=== PATIENT | male | born 1935 | race Caucasian/White ===

== ENCOUNTER 2020-05-17 12:00 | Inpatient (IN) | payer MEDICARE, SELFPAY ==
[2020-05-17] VITALS (8 sets, daily range): BP systolic 109–150; BP diastolic 54–81; PULSE 90–145; RESP 16–20; TEMP 37–38.7; O2SAT 94–98; BMI 26.8
--- NOTE | ~2020-05-17 | NM_ITS ---
EXAMINATION: NM hepatobiliary wo pharm DATE: 05/18/2020 15:45 INDICATION: Abdominal pain COMPARISON: Ultrasound dated 05/17/2020 TECHNIQUE: 4.2 mCi Tc-99m mebrofenin (Choletec) was administered intravenously. Scintigraphic images of the abdomen were obtained for one hour. Additional 4 hour delayed scintigrams were obtained. FINDINGS: There is delayed clearance of radiotracer from the blood pool activity in the heart gradually decreas ing but still discernible on the 60 minute images. There is homogeneous tracer uptake by the liver wh ich persists the relatively homogeneous parenchymal distribution through 4 hours of imaging consisten t with delayed excretion. No evident accumulation of activity in the common bile duct or gallbladder with no evident biliary ductal dilation evident on the ultrasound from one day prior. Consolation of findings would be most consistent with global hepatocellular dysfunction. Subtle crescentic accumulat ion of uptake along the periphery of the left lower quadrant suggesting possible ascites. IMPRESSION: 1. Consultation of findings including delayed hepatic uptake with no discernible hepatic excretion w ith no biliary ductal dilation on recent ultrasound most consistent with severe hepatocellular dysfun ction. Reviewed, dictated and finalized at location A. IMPRESSION: 1. Consultation of findings including delayed hepatic uptake with no discernib le hepatic excretion with no biliary ductal dilation on recent ultrasound most consistent with severe hepatocellular dysfunction.
--- NOTE | ~2020-05-17 | XR_ITS ---
EXAMINATION: XR chest 2V EXAM DATE: 05/18/2020 20:54 INDICATION: Fever. TECHNIQUE: Frontal and lateral projections of the chest obtained and reviewed. There is no prior otilio dy for comparison. FINDINGS: Abnormal bibasilar reticulation, could be chronic interstitial lung disease. Difficult to exclude superimposed reticulonodular infectious process. No prior studies are available for compariso n. No confluent airspace disease. Possible small hiatal hernia. Cardiomediastinal silhouette is normal. There is no pneumothorax suspec sravanthi. There are no pleural effusions. 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 There are mild bony degenerati ve changes. IMPRESSION: Abnormal by basilar reticulation appearance most consistent with chronic interstitial sonia g disease but can't exclude acute infectious process. Reviewed, dictated and finalized at location A. IMPRESSION: Abnormal by basilar reticulation appearance most consistent with ch ronic interstitial lung disease but can't exclude acute infectious process.
--- NOTE | ~2020-05-17 | US_ITS ---
EXAMINATION: US right upper quadrant DATE: 05/17/2020 13:59 INDICATION: Abdominal pain and fever TECHNIQUE: Multiple grayscale and Doppler ultrasound images of the abdomen were obtained. COMPARISON: None available FINDINGS: Bowel gas obscures visualization of the pancreas. The visualized portions of the pancreas a re unremarkable. The liver is normal with normal echogenicity and echotexture. No surface nodularity. Normal hepatopetal flow in the main portal vein. There is mobile sludge within the gallbladder. No p ericholecystic fluid or gallbladder wall thickening are present. The normal common bile duct measures 7 mm. There was no sonographic Bergman sign, sensitivity can be decreased by pain medication. IMPRESSION: 1. Gallbladder sludge without additional findings of cholecystitis. Reviewed, dictated and finalized at location A.
--- NOTE | 2020-05-17 12:33 | ED.FEVER ---
HPI - Fever General Chief Complaint: Fever Stated Complaint: fever Time Seen by Provider: 05/17/20 12:28 History of Present Illness HPI Narrative: Patient is an 84-year-old male who presents ER with abdominal pain and fever. Reports she was lying in bed last night and had sudden onset diffuse abdominal pain. Cannot localize to upper or lower. Kept him up all night but is since gone away. He then noted today that his temperature was elevated and he opted to come in to be evaluated. She has no nausea/vomiting/diarrhea. No urinary frequency or urgency. The pain had no radiation. Denies chest pain/shortness of breath/rhinorrhea/sinus congestion/productive cough. No known sick exposures. Related Data Home Medications Medication Instructions Recorded Confirmed aspirin [Adult Low Dose Aspirin] 81 mg PO DAILY 05/17/20 05/17/20 losartan 100 mg PO DAILY 05/17/20 05/17/20 omeprazole 20 mg PO DAILY 05/17/20 05/17/20 Allergies Allergy/AdvReac Type Severity Reaction Status Date / Time No Known Allergies Allergy Mild Verified 05/17/20 12:09 Review of Systems Review of Systems: All systems reviewed & are unremarkable except as noted in HPI and below Constitutional: Constitutional: Denies chills, Denies fatigue and Reports fever(s) ENT: Denies nasal congestion and Denies sore throat Cardiovascular: Cardiovascular: Denies chest pain and Denies radiating jaw, neck or arm pain Respiratory: Respiratory: Denies cough, Denies dyspnea and Denies wheezing Gastrointestinal: Gastrointestinal: Reports abdominal pain, Denies diarrhea, Denies nausea and Denies vomiting Genitourinary: Genitourinary: Denies hematuria, Denies dysuria and Denies urinary frequency [facility] Past Medical History Medical History GERD (gastroesophageal reflux disease) Hypertension Surgical History Surgical History H/O excision of ganglion cyst History of excision of pilonidal cyst Family History Family History Other No significant family history Social History Social History Social History: The patient lives at home with his , Riddhi, who he designates as his medical decision maker. Smoking status: Former smoker Alcohol intake: current Alcohol use details: Occasional alcohol use a few times per week. Substance use: never Living arrangements: with family Occupation/Education: retired Gender identity (if verbalized by the patient): Male Spiritual care concerns: No Exam Narrative: Exam Narrative: GENERAL: Well-appearing, well-nourished, and in no acute distress. HEAD: Normocephalic, atraumatic. ENT: External ear and TMs normal bilaterally. CHEST: Clear to auscultation. No respiratory distress. HEART: Tachycardic and regular. Normal peripheral pulses. ABDOMEN: Soft, nontender, nondistended. EXTREMITIES: Normal range of motion. No edema. SKIN: Warm, dry, no rash. NEURO: Alert and oriented x3. PSYCH: Normal mood and affect. Course [employer]/PA Physician Supervision Given gallbladder sludge, febrile illness, patient's age, and significant pain last 12 hours it is felt best to admit patient for observation. Discussed with general surgery. Will obtain HIDA scan and check a hepatitis panel. General surgery would like patient to be admitted to medicine and for GI be consulted as well. Patient be started on Zosyn. Since patient is getting HIDA scan tomorrow he will be able to eat a low-fat diet and should be n.p.o. at midnight. Vital Signs Vital signs: Vital Signs Temperature 100.4 F H 05/17/20 12:01 Pulse Rate 112 H 05/17/20 12:01 Respiratory Rate 17 05/17/20 12:01 Blood Pressure 136/54 L 05/17/20 12:01 Pulse Oximetry 96 05/17/20 12:01 Temperature 98.9 F 05/17/20 17:09 Pulse Rate 91 0
[2020-05-17 12:53] LABS: Basophils Percent Auto 0.2 % (0.2-1.2); Hematocrit 40.2 % (42.0-52.0); Immature Granulocyte Absolute 0.03 K/mm3 (0.00-0.031); Immature Granulocyte Percent A 0.3 % (0-0.5); Lymphocytes Absolute Auto 0.28 K/mm3 (0.9-3.2); Lymphocytes Percent Auto 2.9 % (18.3-44.2); Mean Corpuscular HGB Conc 34.8 g/dl (32-36); Mean Corpuscular Hemoglobin 33.3 pg (26-34); Mean Corpuscular Volume 95.5 fl (80-100); Monocytes Absolute Auto 0.5 K/mm3 (0.1-0.6); Monocytes Percent Auto 5.1 % (2.6-8.5); Neutrophils Absolute Auto 8.8 K/mm3 (1.3-6.7); Neutrophils Percent Auto 91.5 % (45.5-73.1); Platelet Count Result 184 k/mm3 (150-375); Red Blood Count 4.21 M/mm3 (4.6-6.20); White Blood Count 9.7 K/mm3 (4.5-10.0)
[2020-05-17 13:06] LABS: Alanine Aminotransferase 380 U/L (4-50); Albumin Level 4.5 g/dL (3.5-5.1); Alkaline Phosphatase 111 U/L (38-126); Anion Gap 14.2 mmol/L (7-16); Aspartate Amino Transferase 564 U/L (17-59); Bilirubin,Total 3.3 mg/dL (0.2-1.3); Blood Urea Nitrogen 14 mg/dL (9-20); Calcium 8.9 mg/dL (8.4-10.2); Carbon Dioxide 28 mmol/L (22-30); Chloride 95 mmol/L (98-107); Estimated CRCL calculation 53 ml/min; Estimated Glomerular Filt Rate > 60; Glucose 155 mg/dL (75-110); Lipase 56 U/L (23-300); Potassium 4.2 mmol/L (3.4-5.0); Sodium 133 mmol/L (137-145)
[2020-05-17] MEDS: SODIUM CHLORIDE 0.9% IV 1,000 ML 999 ML IV CONT (13:17)
[2020-05-17 13:37] LABS: Add Urine Microscopic? YES; Appearance Urine Clear (Clear); Bacteria Urine Trace /hpf; Bilirubin Urine Negative (Negative); Blood Urine Negative (Negative); Color Urine Yellow (Yellow); Glucose Urine UA Negative (Negative); Ketones Urine Negative (Negative); Leukocyte Esterase Ur Negative LEU/UL (Negative); Mucus Urine Rare /lpf; Nitrate Urine Negative (Negative); Protein Urine 2+ mg/dL (Negative); RBC Urine 0-2 /hpf (0-2); Specific Grav Ur 1.014 (1.001-1.035); Squamous Epithelial Cell Urine Rare /hpf (Few)
--- NOTE | 2020-05-17 15:33 | PM.CNGS ---
Assessment and Plan Assessment and plan (1) Abdominal pain: Qualifiers: Abdominal location: periumbilical Qualified Code(s): R10.33 - Periumbilical pain Code(s): R10.9 - Unspecified abdominal pain Status: Acute Assessment and Plan: The patient's periumbilical pain has completely resolved and he is non-tender on exam. Ultrasound showed sludge but no other findings suggesting cholecystitis. He does have markedly elevated LFTs and a fever. I discussed the patient's case and plan of care with Dr. Nieto. The patient's clinical presentation, history, and exam do not correlate with gallbladder disease. We would recommend getting a HIDA scan to further evaluate the gallbladder and also ordering a hepatitis panel. No plans for surgical intervention at this time. Okay from our standpoint for the patient to eat a low fat diet. Thank you for allowing us to see the patient in consultation and we will continue to follow along with you. (2) Elevated LFTs: Code(s): R79.89 - Other specified abnormal findings of blood chemistry Status: Acute (3) Hypertension: Qualifiers: Hypertension type: unspecified Qualified Code(s): I10 - Essential (primary) hypertension Code(s): I10 - Essential (primary) hypertension Status: Acute History of Present Illness Consult details Consult date: 05/17/20 Reason for consult: other (Elevated LFTs and gallbladder sludge) Requesting physician: Flash Brown MD Narrative: Homar is an 84-year-old male with a history of hypertension and GERD. He presented to the emergency department this morning for evaluation of fever, generalized weakness, diaphoresis, and abdominal pain. The patient reports eating eggs and sausage for dinner last night and then developing periumbilical abdominal pain a few hours after. He took Gas-X, which helped alleviate his abdominal pain. He developed generalized weakness and diaphoresis while sitting in his chair, but decided to lay down in bed to sleep. Through the night, he woke up with rigors and still had excessive sweating. His took his temperature, which reportedly was 102.1 F. The patient states at that time, his abdominal pain had completely resolved. This morning, he continued to feel weak and chilled, so they decided to take him to the emergency department for further evaluation. His states it took two people to get him to the car. Labs in the ER revealed a white blood cell count of 9,700, total bilirubin 3.3, AST 564, ALT 380, alk phos 111, and lipase 56. Urinalysis showed 2+ protein and urine urobilinogen of 4.0. Right upper quadrant abdominal ultrasound was performed and showed gallbladder sludge with no pericholecystic fluid, gallbladder wall thickening, or distention. In the ER, he was found to be tachycardic with a heart rate of 112 and a temperature of 100.4 F. Our service was contacted for surgical evaluation due to the findings of gallbladder sludge and elevated LFTs with a fever. The patient is now being seen in the ER. He reports he has not had any abdominal pain since late last night and is having no pain now. He denies any nausea, vomiting, change in bowel habits, or bloating. He denies having this pain in the past. No fevers prior to last night. Voiding normally without complaints. No other complaints at this time. Review of Systems Constitutional: Constitutional: Reports as per HPI, Reports chills, Reports excessive sweating, Denies fatigue, Reports fever(s), Denies headache(s) and Reports weakness (generalized weakness) Eyes: Eyes: Denies change in vision and Denies loss of vision ENT: Reports Normal hearing present, Denies dizziness and Denies headache(s) Cardiovascular: Cardiovascular: Denies chest pain, Denies syncope, Denies leg edema, Denies lightheadedness, Denies radiating jaw, neck or arm pain and Denies dyspnea Respiratory: Respiratory: Denies cough, Denies dyspnea and Denies wheezing Gastrointestina
[2020-05-17 16:46] LABS: Hepatitis B Surface Antigen Negative (Negative)
[2020-05-17 16:52] LABS: HAV RESULT Negative (Negative); Hepatitis B Core IgM Result Negative (Negative)
[2020-05-17 17:04] LABS: Hepatitis C Virus Antibody Negative (Negative)
--- NOTE | 2020-05-17 17:39 | ADMGEN ---
This patient, Homar Loyola, was admitted to 3 Med Surg Room 315-01. Patient/family oriented to hospital policies and general routines including ID bracelet, bed and alarms, visiting hours, pain management, procedures, bathroom and other care routines, personal items, smoking policy, room service/diet, and visiting hours. Valuables list has been completed. Information on how to activate the Rapid Response Team has been discussed. Patient/Family are encouraged to report perceived risks to care and to ask questions if they do not understand what they are told or what they should do.
--- NOTE | 2020-05-17 17:57 | PM.PNGS ---
Progress Note: A&P Assessment and Plan (1) Abdominal pain: Qualifiers: Abdominal location: periumbilical Qualified Code(s): R10.33 - Periumbilical pain Code(s): R10.9 - Unspecified abdominal pain Status: Acute Assessment and Plan: pain has resolved since early this morning. It has not recurred. His ultrasound was somewhat equivocal. Will get a HIDA scan as well as hepatitis profile. There were no signs of cholecystitis on the ultrasound. Etiology is unclear. Cholecystitis is a possibility but seems somewhat unlikely. Will follow along with you. No plans for surgery at this time. (2) Elevated LFTs: Code(s): R79.89 - Other specified abnormal findings of blood chemistry Status: Acute Assessment and Plan: Recheck tomorrow morning. HIDA scan tomorrow as well. Subjective Subjective Date/Time Seen: 05/17/20 17:57 Patient had a fatty meal for supper last night and afterwards experienced severe upper abdominal pain associated with nausea. This lasted several hours, into the early childhood. It went away after some Gas-X. He went back to bed and when he awakened this morning he felt chilled and was noted to have a fever over 102. He continued to feel bad but no longer had any abdominal pain and has not had any since the episode last night. He was seen in the emergency room and had a normal white count but at the upper limits of normal. His liver enzymes were elevated with a bilirubin of 3.3 but normal alkaline phosphatase. His ultrasound showed gallbladder sludge and a 7 mm common bile duct. He feels fine now with no complaints or problems. He did still have a low-grade fever in the emergency room. He was seen in consultation for potential gallbladder disease as the source of his symptoms. Review of Systems Review of Systems: All systems reviewed & are unremarkable except as noted in HPI and below ( HPI) Exam GI: Inspection: normal to inspection, non-distended and no visible herniation GI Palp: Yes Soft to palpation, No Tenderness to palpation present (GI), No Guarding due to palpation present (GI), No Hepatomegaly present, No Splenomegaly present, No Hernia present and No Palpable mass present Auscultation: normal bowel sounds Objective Data Vital Signs Vital Signs: Vital Signs - 24 hr 05/17/20 12:01 05/17/20 13:18 05/17/20 17:09 Temperature 38.0 C H 37.2 C Pulse Rate 112 H 105 H 91 Respiratory Rate 17 19 16 Blood Pressure 136/54 L 132/60 109/72 Pulse Oximetry 96 96 95 Intake/Output Intake/Output: Intake & Output 05/14/20 05/15/20 05/16/20 05/17/20 23:59 23:59 23:59 23:59 Intake Total 1150 Balance 1150 Meds/Results Medications: Active Medications Generic Name Dose Route Start Last Admin Trade Name Freq PRN Reason Stop Dose Admin Acetaminophen 1,000 mg in 100 mls @ 400 mls/hr 05/17/20 15:38 Ofirmev 1,000 Mg Ivpb IVPB 05/18/20 15:39 Q6H PRN Mild Pain (1-3) or Fever Sodium Chloride 1,000 mls @ 80 mls/hr 05/17/20 15:40 Normal Saline Iv IV CONT .[id number] SEEMA Piperacillin/Tazobactam/Dextrose 3.375 gm in 50 mls @ 100 mls/hr 05/17/20 23:00 Zosyn 3.375 Gm/D5w 50ml Pm IVPB Q6HR SEEMA Morphine Sulfate 4 mg 05/17/20 15:38 Morphine Sulfate Inj IV PUSH Q2H PRN Pain Rated 7-10 Ondansetron HCl 4 mg 05/17/20 15:38 Zofran Inj IV PUSH Q4H PRN Nausea Radiology Results: ITS Impressions Upper Quadrant Ultrasound 05/17/20 14:00 IMPRESSION: 1. Gallbladder sludge without additional findings of cholecystitis. Labs Labs: Laboratory Results - last 24 hr 05/17/20 05/17/20 05/17/20 12:48 12:48 13:21 WBC 9.7 RBC 4.21 L Hgb 14.0 Hct 40.2 L MCV 95.5 MCH 33.3 MCHC 34.8 RDW 13.0 Plt Count 184 MPV 10.0 Immature Gran % (Auto) 0.3 Neut % (Auto) 91.5 H Lymph % (Auto) 2.9 L Cooke % (Auto) 5.1 Eos % (Auto) 0.0 Baso % (Auto)
[2020-05-17] MEDS: SODIUM CHLORIDE 0.9% IV 1,000 ML 80 ML IV CONT (18:00)
[2020-05-18] VITALS (16 sets, daily range): BP systolic 92–112; BP diastolic 54–73; PULSE 86–144; RESP 16–20; TEMP 36.7–37.6; O2SAT 95–97
--- NOTE | 2020-05-18 | ECHO_ITS ---
Patient Info Name: Homar Loyola Age: 84 years : 1935 Gender: Male Ht: 68 in Wt: 176 lbs BSA: 1.97 m2 HR: 95 bpm BP: 109 / 72 mmHg Heart Rhythm: Atrial Fibrillation Technical Quality: Good Exam Date: 05/18/2020 10:03 AM Exam Location: [facility] Patient Status: Inpatient Admit Date: 05/17/2020 Staff Ordering Physician: Meron Moore DO [employer] Machine Tender: Peter Bergman RDCS, RT Attending Provider: Mic Velasco MD Referring Physician: Oscar SHI; Exam Type: CA echo doppler color flow Study Info Indications I48.1 - Persistent atrial fibrillation Complete two-dimensional, color flow and Doppler transthoracic echocardiogram is performed. Strain analysis performed. History/Risk Factors Atrial fibrillation. Summary 1. Left ventricular chamber dimension is normal. 2. Left ventricular systolic function is normal, estimated at 60-65%. 3. There is mild to moderate mitral valve regurgitation. 4. There is mild aortic valve stenosis with a peak velocity of 198 cm/s, mean gradient of 8 mmHg, and aortic valve area of 1.2 cm2. 5. Severe biatrial dilation. Left Ventricle Left ventricular chamber dimension is normal. Left ventricular systolic function is normal, estimated at 60-65%. The left ventricular diastolic function is indeterminate. Right Ventricle Right ventricular chamber dimension is normal. Left Atria Left atrial chamber dimension is severely enlarged. Right Atria Right atrial chamber dimension is severely enlarged. Aortic Valve The aortic valve is trileaflet. There is mild aortic valve sclerosis. There is mild aortic valve stenosis with a peak velocity of 198 cm/s, mean gradient of 8 mmHg, and aortic valve area of 1.2 cm2. Pulmonic Valve The pulmonic valve is not well visualized. Mitral Valve The mitral valve has normal leaflets. There is mild to moderate mitral valve regurgitation. Tricuspid Valve The tricuspid valve leaflets are normal. There is mild tricuspid valve regurgitation. Pericardium/Pleural The pericardium appears normal. Aorta The aortic root size at the sinus of Valsalva is normal. Left Ventricular Outflow Tract Name Value Normal LVOT 2D LVOT Diameter 2.0 cm LVOT Doppler LVOT Peak Gradient 2 mmHg LVOT Mean Gradient 1 mmHg LVOT VTI 13 cm LVOT VTI/AV VTI Ratio 0.4 LVOT Stroke Volume 39 ml LVOT CO 3.9 l/min LVOT CI 2.0 l/min/m2 Mitral Valve Name Value Normal MV Doppler MV Peak Gradient 1 mmHg MV Mean Gradient 0 mmHg MV Decel [place] 533 cm/s2 MV PHT
--- NOTE | 2020-05-18 03:12 | ECG_ITS ---
Measurements Intervals [place] Rate: 140 P: NC: 0 QRS: 12 QRSD: 85 T: 24 QT: 292 QTc: 447 Interpretive Statements ATRIAL FIBRILLATION WITH RAPID VENTRICULAR RESPONSE BORDERLINE T WAVE ABNORMALITY- INF/HIGH LAT LEADS ABNORMAL ECG Electronically Signed On 05-18-2020 6:56:53 CDT by Mohit Stark D.O.
--- NOTE | 2020-05-18 03:13 | PM.IMHP ---
H&P: HPI History of Present Illness Date/Time: 05/18/20 03:30 Chief complaint: Fever, abdominal pain Narrative: Homar Loyola is a 84 year old male With a past medical history of hypertension and GERD who presented to the ER with abdominal pain and fever. The patient started having abdominal pain on the evening of the . the pain started after he had eaten dinner. The pain was in his mid abdomen and was [id number] in intensity and constant. He denies any changes in his bowel habits and reports that he has a bowel movement every morning. By the morning of the his abdominal pain had resolved. Had not noticed any eliciting or relieving factors for his abdominal pain. He has been having normal urinary frequency without urgency or hematuria. He denies having any upper respiratory symptoms, cough, congestion, rhinorrhea or recent ill contacts or known COVID-19 exposures. the patient initially was mildly febrile on presentation to the ER around noon with a temperature of 100.4?. He spiked a fever at around 9:00 p.m. and his T-max was 101.7? around 10:00 p.m.. His heart rate had climbed to the 150's when he spiked a fever. He received Tylenol which brought his heart rate down to the 120s. However when his fever had resolved his heart rate remained elevated between the 120s to 140s. Nursing staff called me at that time and a stat EKG was ordered and the patient was placed on telemetry. EKG was consistent with atrial flutter/tachycardia. Telemetry was reviewed and was consistent with AFib with RVR. The patient's blood pressure had dropped to 92/57 with a repeat value while I was in the room of 115/50's. The patient denies any history of atrial fibrillation. He does not feel his heart palpating or racing. He feels like he is in his usual health and was eager to go home this morning. He has not been having any chest pain. Given his atrial flutter/tachycardia and relatively soft blood pressures patient we transfer to the IMU for Cardizem push and Cardizem drip. Review of Systems Review of Systems: Narrative: 12 systems were reviewed with pertinent positives and negatives per HPI. Except as documented in the HPI, all other systems were reviewed and are negative. [facility] Past Medical History Medical History (Updated 05/18/20 @ 04:25 by Meron Moore DO) GERD (gastroesophageal reflux disease) Hypertension Surgical History Surgical History (Updated 05/18/20 @ 04:25 by Meron Moore DO) H/O excision of ganglion cyst History of excision of pilonidal cyst Status post cataract extraction of both eyes with insertion of intraocular lens Family History Family History Father Coronary artery disease He reports that he is not close to his family And is uncertain when any of them had as medical problems. His full sibling is but he does not know what she from. Other No significant family history Social History Social History (Updated 05/18/20 @ 04:26 by Meron Moore DO) Social History: The patient lives at home with his , Riddhi, who he designates as his medical decision maker. Primary care physician: Dr. Mo Marlow Code status: full code Smoking status: Former smoker Alcohol intake: current Alcohol use details: Occasional alcohol use a few times per week. Substance use: never Living arrangements: with family Additional living arrangements comments: the patient lives with his 3rd of 11 years. He has 2 children a son and a daughter. 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 Gender identity (if verbalized by the patient): Male Spiritual care concerns: No Meds Home Medications and Allergies Home Medications Medication Instructions Recorded Confirmed Type aspirin [Adul
[2020-05-18] MEDS: SODIUM CHLORIDE 0.9% IV 1,000 ML 80 ML IV CONT (04:46)
[2020-05-18] MEDS: dilTIAZem HCl INJ 25 MG/5 ML VIAL 10 MG IV PUSH (04:47)
[2020-05-18 04:51] LABS: Hematocrit 36.8 % (42.0-52.0); Hemoglobin 12.5 g/dL (14.0-18.0); Mean Corpuscular Hemoglobin 32.9 pg (26-34); Mean Corpuscular Volume 96.8 fl (80-100); Mean Platelet Volume 9.8 fl (7.4-10.4); Platelet Count Result 145 k/mm3 (150-375); Red Cell Distribution Width 13.2 % (11.5-14.5); White Blood Count 10.2 K/mm3 (4.5-10.0)
[2020-05-18 05:04] LABS: Alanine Aminotransferase 257 U/L (4-50); Albumin Level 3.6 g/dL (3.5-5.1); Alkaline Phosphatase 78 U/L (38-126); Aspartate Amino Transferase 211 U/L (17-59); Bilirubin Direct 1.9 mg/dL (0-0.3); Bilirubin,Total 5.2 mg/dL (0.2-1.3)
[2020-05-18 05:07] LABS: Alanine Aminotransferase 251 U/L (4-50); Albumin Level 3.4 g/dL (3.5-5.1); Alkaline Phosphatase 74 U/L (38-126); Anion Gap 9.9 mmol/L (7-16); Aspartate Amino Transferase 199 U/L (17-59); Bilirubin,Total 5.1 mg/dL (0.2-1.3); Blood Urea Nitrogen 15 mg/dL (9-20); Calcium 7.7 mg/dL (8.4-10.2); Carbon Dioxide 28 mmol/L (22-30); Chloride 98 mmol/L (98-107); Estimated CRCL calculation 40 ml/min; Estimated Glomerular Filt Rate 58; Glucose 117 mg/dL (75-110); Potassium 3.9 mmol/L (3.4-5.0); Sodium 132 mmol/L (137-145)
--- NOTE | 2020-05-18 09:42 | PM.CNCAR ---
Assessment and Plan Additional Plan This is an 84-year-old man I am seeing at the request of the hospitalist with atrial fib in R. The overwhelming likelihood is that this is an acute arrhythmia beginning in the middle of the night when suddenly was noticed that he was tachycardic. I am therefore relatively comfortable treating this as an acute onset of atrial fibrillation and as such I believe we should attempt to restore sinus rhythm medically. The patient of course should also be anticoagulated but I will defer that decision until it is clear that he is not going to require any sort of an operation. That seems unlikely at this point. The likely etiology of the atrial fibrillation has to do with underlying mitral valve regurgitation which is obvious on physical exam as well as an acute febrile illness. I will begin the patient on antiarrhythmic therapy with sotalol and request echocardiography to assess the significance of his mitral valve disease. He should be anticoagulated as soon as it is clear that the surgical consultants have no plans to operate on this gentleman. Leonardo Thomson MD [facility] History of Present Illness History of Present Illness Consult date/time: 05/18/20 09:42 Consult reason: atrial fibrillation Reason For Visit: Fever, abdominal pain Narrative: This is an 84-year-old man I am seeing at the request of the hospitalist to manage atrial fibrillation. Patient is unknown to me prior to this encounter. He became symptomatic with abdominal pain and fever about 2 days ago. He describes mid abdominal cramping pain that was at times mild at times quite severe. He had a fever with this at home his temperature is at home as high as 102?. After couple of days of the symptoms he came in last night to the emergency room to be evaluated. His abdominal pain seems to have resolved spontaneously either shortly after admission or while he was in the emergency room. There was some concern about his gallbladder because his bilirubin and alkaline phosphatase was elevated. He apparently has some sign of gallbladder sludge but surgical consultation did not see any evidence of an acute abdomen or need for immediate surgery. I believe he is on the schedule for HIDA scan later today. Last evening while he was on the floor with suddenly noticed that his heart rate was rapid previous to this his pulse was in the 80 and 90 range and suddenly it was 145. An electrocardiogram was done which demonstrated atrial fib with rapid ventricular response. There were no EKGs recorded in the emergency room prior to this change in his vital signs. Patient was physically unaware of this he denies any sense of tachycardia or palpitations in the middle of the night when this occurred he was treated with intravenous diltiazem which has slowed his heart rate into the 90 see persistent atrial fibrillation. He has no previous knowledge of this arrhythmia from 81 is a very good historian. Patient is normally under the care of Dr. Marlow for his primary care needs. He has hypertension and esophageal reflux as his principal health problems. He did indicate that in the past he is PCP informed him of a cardiac murmur which was not investigated any further as he was asymptomatic. He is currently receiving diltiazem intravenously, intravenous Pipracil and as well as intravenous acetaminophen. He with the is acetaminophen he appears to have defervesed. Review of Systems Constitutional: Constitutional: Reports no additional constitutional complaints Eyes: Eyes: Reports no additional eye complaints ENT: Reports system reviewed and no additional complaints, except as documented Cardiovascular: Cardiovascular: Reports no additional cardiovascular complaints Respiratory: Respiratory: Reports no additional respiratory complaints Gastrointestinal: Gastrointestinal: Reports as per HPI Musculoskeletal: Musculoskeletal: Reports no additional musculoskeletal compl
--- NOTE | 2020-05-18 10:19 | PM.PNGS ---
Progress Note: A&P Assessment and Plan (1) Biliary sludge: Code(s): K83.8 - Other specified diseases of biliary tract Status: Acute Assessment and Plan: Pending HIDA scan. No abdominal pain. Pending GI consult. Hepatitis profile negative. (2) Elevated LFTs: Code(s): R79.89 - Other specified abnormal findings of blood chemistry Status: Acute Assessment and Plan: AST and ALT are both lower. Alk-phos remains normal. Total bilirubin is higher at 5.1. Direct bilirubin only 1.3. (3) Fever: Code(s): R50.9 - Fever, unspecified Status: Acute Assessment and Plan: Still having fever despite antibiotics. T-max 38.7? centigrade (4) Atrial tachycardia: Code(s): I47.1 - Supraventricular tachycardia Status: Acute Assessment and Plan: rate controlled but still in atrial fib. To have cardiac echo today. Subjective Subjective Date/Time Seen: 05/18/20 10:19 Patient reports: pain is less ( Denies abdominal pain) and fever Interval history: no nausea vomiting or abdominal pain. Still having fever. Developed rapid atrial fibrillation last night and transferred to IMU. Heart rate still in AFib but controlled this morning. Review of Systems Review of Systems: All systems reviewed & are unremarkable except as noted in HPI and below Constitutional: Constitutional: Reports fever(s) Cardiovascular: Cardiovascular: Denies chest pain and Denies dyspnea Respiratory: Respiratory: Denies cough and Denies dyspnea Gastrointestinal: Gastrointestinal: Reports as per HPI Neurologic: Denies confusion and Denies headache(s) Exam Narrative: Exam Narrative: Had temperature as high as 38.7? centigrade last night. Const: General: comfortable and no acute distress; No confusion Orientation/consciousness: patient oriented x3 and No confusion GI: Inspection: non-distended GI Palp: Yes Soft to palpation, No Tenderness to palpation present (GI), No Guarding due to palpation present (GI) and No Rebound tenderness present Auscultation: normal bowel sounds Neuro: General: patient oriented x3, no focal motor deficits and No confusion Extrem: General: no calf tenderness and no edema Psych: Affect: normal affect Insight: Good insight present (Psych) Judgement: Good judgement present (Psych) Objective Data Vital Signs Vital Signs: Vital Signs - 24 hr 05/17/20 12:01 05/17/20 13:18 05/17/20 17:09 Temperature 38.0 C H 37.2 C Pulse Rate 112 H 105 H 91 Respiratory Rate 17 19 16 Blood Pressure 136/54 L 132/60 109/72 Pulse Oximetry 96 96 95 05/17/20 17:30 05/17/20 18:00 05/17/20 21:17 Temperature 37.0 C 38.4 C H Pulse Rate 90 90 Respiratory Rate 18 18 Blood Pressure 126/67 Pulse Oximetry 94 94 05/17/20 21:47 05/17/20 22:00 05/18/20 02:00 Temperature 38.1 C H 38.7 C H 37.6 C H Pulse Rate 145 H 130 H Respiratory Rate 20 16 Blood Pressure 150/81 H 92/57 L Pulse Oximetry 98 95 05/18/20 04:24 05/18/20 04:45 05/18/20 05:15 Temperature 36.8 C Pulse Rate 144 H 144 H 97 Respiratory Rate 16 Blood Pressure 109/72 Pulse Oximetry 95 05/18/20 05:16 05/18/20 05:54 05/18/20 08:00 Temperature 36.7 C Pulse Rate 88 98 94 Respiratory Rate 18 16 Blood Pressure 106/54 L Pulse Oximetry 96 97 Intake/Output Intake/Output: Intake & Output 05/15/20 05/16/20 05/17/20 05/18/20 23:59 23:59 23:59 23:59 Intake Total 1540 1050 Output Total 450 Balance 1540 600 Meds/Results Medications: Active Medications Generic Name Dose Route Start Last Admin Trade Name Freq PRN Reason Stop Dose Admin Acetaminophen 1,000 mg in 100 mls @ 400 mls/hr 05/17/20 15:38 05/17/20 21:32 Ofirmev 1,000 Mg Ivpb IVPB 05/18/20 15:39 Infused Q6H PRN Infusion Mild Pain (1-3) or Fever Sodium Chloride 1,000 mls @ 80 mls/hr 05/17/20 15:40 05/18/20 04:46 Normal Saline Iv IV CONT 80 mls/hr .[id number] SEEMA Administrati
[2020-05-18] MEDS: SOTALOL HCL 80 MG TABLET PO ×2 (10:30→20:46)
--- NOTE | 2020-05-18 10:49 | WPDGICN ---
Assessment and Plan Assessment and plan (1) Elevated LFTs: Code(s): R79.89 - Other specified abnormal findings of blood chemistry Status: Acute Assessment and Plan: Patient with elevated LFTs on admission associated with abdominal pain suggested of liver or gallbladder disease. His total bilirubin has increased currently 5.1 predominantly indirect fraction by previous fractionation. AST 199, ALT 251, alk-phos 74. current hepatitis ABC serologies are noted to be negative. Additional labs will be obtained. Agree with HIDA scan as this all appears to correlate with severe pain episode. Cannot exclude passage of a common duct stone or sludge. Given benign findings on ultrasound agree with conservative management initially. Will follow with you. If HIDA scan not fruitful than MRCP may be a consideration. (2) Abdominal pain: Qualifiers: Abdominal location: periumbilical Qualified Code(s): R10.33 - Periumbilical pain Code(s): R10.9 - Unspecified abdominal pain Status: Acute Assessment and Plan: Abdominal pain along with low-grade fever has resolved. Suspect this is associated with his elevated LFTs. Will follow with you. Currently would allow diet as tolerated. (3) Atrial fibrillation: Code(s): I48.91 - Unspecified atrial fibrillation Status: Acute GI Consult Note Consult date/time: 05/18/20 10:49 HPI: Homar Loyola is a 84 year old male seen in evaluation at the request of the hospitalist service, Patient in usual state of health he noticed on Thursday that he had rather significant abdominal pain in the mid abdomen. Because of the intensity of this pain he presented to the emergency room was found to have elevated LFTs. Patient was given pain medications and since that time pain has abated. Currently is pain-free. Elevated LFTs were identified gallbladder ultrasound was performed only sludge identified no other abnormalities suggested. Patient denies any prior history of gallbladder or liver disease. He does admit to several alcoholic beverages a day for many years. This has been his routine. He denies any known exposure to hepatitis. All family members have been healthy. He has had no change in his medications. Patient reports no recent travel. Low-grade fever was noted on admission. This is subsequently resolved. Review of Systems Review of Systems: All systems reviewed & are unremarkable except as noted in HPI and below PMFSH Past Medical History Medical History GERD (gastroesophageal reflux disease) Hypertension Surgical History Surgical History (Updated 05/18/20 @ 04:25 by Meron Moore DO) H/O excision of ganglion cyst History of excision of pilonidal cyst Status post cataract extraction of both eyes with insertion of intraocular lens Family History Family History Father Coronary artery disease He reports that he is not close to his family And is uncertain when any of them had as medical problems. His full sibling is but he does not know what she from. Other No significant family history Social History Social History Social History: The patient lives at home with his , Riddhi, who he designates as his medical decision maker. Primary care physician: Dr. Mo Marlow Code status: full code Smoking status: Former smoker Alcohol intake: current Alcohol use details: Occasional alcohol use a few times per week. Substance use: never Living arrangements: with family Additional living arrangements comments: the patient lives with his 3rd of 11 years. He has 2 children a son and a daughter. Occupation/Education: retired Additional occupation/education comments: He is retired from the [employer] where
--- NOTE | 2020-05-18 11:30 | PM.IMPN ---
Progress Note: A&P Assessment and Plan (1) Abdominal pain: Qualifiers: Abdominal location: periumbilical Qualified Code(s): R10.33 - Periumbilical pain Code(s): R10.9 - Unspecified abdominal pain Status: Acute Assessment and Plan: Patient with abdominal pain on admission with fever. Patient asymptomatic at this time. Ultrasound showing gallbladder sludge but no evidence of cholecystitis. HIDA scan showing delayed hepatic uptake consistent with severe hepatocellular dysfunction. Probably acute hepatitis. Hepatitis panel is negative. Continue to monitor for now. Appreciate general surgery input (2) Fever: Code(s): R50.9 - Fever, unspecified Status: Acute Assessment and Plan: patient with fever to 101.7. Etiology unclear but suspect related to hepatitis. White count essentially normal but did have a left shift. Urine is clear. Will check chest x-ray to exclude right lower lobe pneumonia. Blood cultures are pending. Will continue antibiotics for now and stop if blood cultures remain negative x2 days and no other clear etiology bacterial infection. (3) Atrial fibrillation: Code(s): I48.91 - Unspecified atrial fibrillation Status: Acute Assessment and Plan: Patient developed atrial fibrillation. He was admitted to IMU was started on diltiazem drip. He was seen by cardiology and sotalol was started and the drip was stopped. Echocardiogram showing EF of 60-65% and moderate MR and severe biatrial dilation. He may be in and out of atrial fibrillation. Defer to cardiology about long-term anticoagulation. (4) Elevated LFTs: Code(s): R79.89 - Other specified abnormal findings of blood chemistry Status: Acute Assessment and Plan: Patient with elevated AST, ALT and total bilirubin. AST and ALT are trending downward. Bilirubin level has climbed for unclear reasons. Mostly indirect. Not anemic to suggest hemolysis. He may have passed a gallstone. Consider viral etiology. (5) Hypertension: Qualifiers: Hypertension type: unspecified Qualified Code(s): I10 - Essential (primary) hypertension Code(s): I10 - Essential (primary) hypertension Status: Acute Assessment and Plan: Blood pressure reviewed on 05/18/2020. Blood pressure well controlled. Blood pressure actually soft at times. Losartan on hold. He is currently off the diltiazem. Continue to monitor. (6) DVT prophylaxis: Code(s): Z29.9 - Encounter for prophylactic measures, unspecified Status: Acute Assessment and Plan: [place]eyous[place] Subjective Date/time seen: 05/18/20 11:30 Interval history: 84yo male with HTN here for fever and abd pain. no chest pain or abdominal pain today. No shortness of breath. No further fever or chills today. No nausea or vomiting. No diarrhea. Denies cough. Exam Narrative: Exam Narrative: Tm 101.7 98.1 106/54 96% ra Gen - NARD lying flat in bed Chest - CTA bilaterally, nml RR CV - irregularly irregular. S1-S2. Telemetry showing atrial fibrillation with controlled rate. Abd - Soft, NT/ND, Positive BS Ext - No pedal edema Neuro - Alert and oriented. Nonfocal exam. Psych - Nml mood and affect Skin - Warm and dry Objective Data Vital Signs Vital Signs: Vital Signs - 24 hr 05/17/20 12:01 05/17/20 13:18 05/17/20 17:09 Temperature 100.4 F H 98.9 F Pulse Rate 112 H 105 H 91 Respiratory Rate 17 19 16 Blood Pressure 136/54 L 132/60 109/72 Pulse Oximetry 96 96 95 05/17/20 17:30 05/17/20 18:00 05/17/20 21:17 Temperature 98.6 F 101.2 F H Pulse Rate 90 90 Respiratory Rate 18 18 Blood Pressure 126/67 Pulse Oximetry 94 94 05/17/20 21:47 05/17/20 22:00 05/18/20 02:00 Temperature 100.5 F H 101.7 F H 99.7 F H Pulse Rate 145 H 130 H Respiratory Rate 20 16 Blood Pressure 150/81 H 92/57 L Pulse Oximetry 98 95 05/18/20 04:24 05/18/20 04:45
[2020-05-18 11:53] LABS: Alanine Aminotransferase 214 U/L (4-50); Albumin Level 3.6 g/dL (3.5-5.1); Alkaline Phosphatase 77 U/L (38-126); Aspartate Amino Transferase 168 U/L (17-59); Bilirubin Direct 1.9 mg/dL (0-0.3); Bilirubin,Total 4.9 mg/dL (0.2-1.3)
--- NOTE | 2020-05-18 14:08 | ECG_ITS ---
Measurements Intervals [place] Rate: 92 P: [place]: 0 QRS: 17 QRSD: 82 T: -11 QT: 357 QTc: 443 Interpretive Statements ATRIAL FIBRILLATION NONSPECIFIC T-WAVE ABNORMALITY- INFERIOR LEADS BASELINE WANDER- V3-V5 ABNORMAL ECG Electronically Signed On 05-18-2020 15:47:56 CDT by Mohit Stark D.O.
--- NOTE | 2020-05-18 23:22 | ECG_ITS ---
Measurements Intervals [place] Rate: 100 P: [place]: 0 QRS: 23 QRSD: 85 T: 23 QT: 380 QTc: 490 Interpretive Statements ATRIAL FIBRILLATION WITH RAPID VENTRICULAR RESPONSE LOW QRS VOLTAGE IN LIMB LEADS BORDERLINE T WAVE ABNORMALITY- INFERIOR LEADS ABNORMAL ECG Electronically Signed On 05-19-2020 9:07:27 CDT by Mohit Stark D.O.
[2020-05-19] VITALS (20 sets, daily range): BP systolic 107–127; BP diastolic 62–74; PULSE 88–109; RESP 14–18; TEMP 35.9–38.2; O2SAT 91–99
[2020-05-19 04:28] LABS: Basophils Percent Auto 0.4 % (0.2-1.2); Eosinophils Absolute Auto 0.1 K/mm3 (0-0.3); Eosinophils Percent Auto 1.9 % (0-4.4); Hematocrit 32.9 % (42.0-52.0); Hemoglobin 11.4 g/dL (14.0-18.0); Immature Granulocyte Absolute 0.02 K/mm3 (0.00-0.031); Immature Granulocyte Percent A 0.3 % (0-0.5); Lymphocytes Absolute Auto 0.43 K/mm3 (0.9-3.2); Lymphocytes Percent Auto 5.8 % (18.3-44.2); Mean Corpuscular HGB Conc 34.7 g/dl (32-36); Mean Corpuscular Hemoglobin 33.3 pg (26-34); Mean Corpuscular Volume 96.2 fl (80-100); Mean Platelet Volume 9.9 fl (7.4-10.4); Monocytes Absolute Auto 0.7 K/mm3 (0.1-0.6); Monocytes Percent Auto 9.3 % (2.6-8.5); Neutrophils Absolute Auto 6.1 K/mm3 (1.3-6.7); Neutrophils Percent Auto 82.3 % (45.5-73.1); Platelet Count Result 128 k/mm3 (150-375); Red Blood Count 3.42 M/mm3 (4.6-6.20); Red Cell Distribution Width 13.4 % (11.5-14.5); White Blood Count 7.4 K/mm3 (4.5-10.0)
[2020-05-19 04:46] LABS: Alanine Aminotransferase 147 U/L (4-50); Albumin Level 3.3 g/dL (3.5-5.1); Alkaline Phosphatase 71 U/L (38-126); Anion Gap 5 mmol/L (8-16); Aspartate Amino Transferase 87 U/L (17-59); Bilirubin,Total 3.5 mg/dL (0.2-1.3); Blood Urea Nitrogen 13 mg/dL (9-20); Calcium 7.8 mg/dL (8.4-10.2); Carbon Dioxide 27 mmol/L (22-30); Chloride 99 mmol/L (98-107); Estimated CRCL calculation 44 ml/min; Estimated Glomerular Filt Rate > 60; Glucose 102 mg/dL (75-110); Lipase 33 U/L (23-300); Potassium 3.6 mmol/L (3.4-5.0); Sodium 131 mmol/L (137-145)
[2020-05-19] MEDS: ENOXAPARIN 40 MG/0.4 ML SYRINGE SUB-Q (08:01)
[2020-05-19] MEDS: SOTALOL HCL 80 MG TABLET PO ×2 (08:01→20:40)
--- NOTE | 2020-05-19 08:04 | ECG_ITS ---
Measurements Intervals [place] Rate: 100 P: [place]: 0 QRS: -2 QRSD: 89 T: 0 QT: 361 QTc: 467 Interpretive Statements ATRIAL FIBRILLATION WITH RAPID VENTRICULAR RESPONSE NONSPECIFIC T-WAVE ABNORMALITY- INFERIOR LEADS ABNORMAL ECG Electronically Signed On 05-19-2020 9:15:47 CDT by Mohit Stark D.O.
--- NOTE | 2020-05-19 08:45 | WPDGIPROGNO ---
Progress Note: A&P Additional Plan Patient alert and comfortable this morning. Tolerating diet denies abdominal pain. Physical exam reveals patient to be alert. Vital signs are stable. Lungs are clear. Heart without murmur. Abdomen is soft and nontender with no organomegaly. Labs reveal total bilirubin 1.9, AST 87, ALT 147, alk-phos 71. HIDA scan unremarkable. Impression 1. Resolved right sided abdominal pain. 2. Resolving LFTs. Suggestive that he may have passed a common duct stone. Imaging of the liver pancreas and HIDA scan are unremarkable. Clinically patient improving. I see no indication for surgery. Follow-up LFTs after discharge to ensure resolution is advised. Plan is to advance to a low-fat diet. Suggest follow-up my office electively if pain recurs. Patient should limit alcohol intake if at all feasible. Current hepatitis serologies are negative. Additional labs pending. Caution with hepatotoxic agents advised. 3. Atrial fibrillation. Subjective Date/time seen: 05/19/20 08:45 Objective Data Vital Signs Vital Signs: Vital Signs - 24 hr 05/18/20 10:30 05/18/20 12:00 05/18/20 14:00 Temperature Pulse Rate 96 103 H 103 H Respiratory Rate 16 Blood Pressure Pulse Oximetry 97 05/18/20 16:00 05/18/20 18:00 05/18/20 19:50 Temperature 98.9 F 98.1 F Pulse Rate 97 104 H 94 Respiratory Rate 18 20 Blood Pressure 112/73 94/57 L Pulse Oximetry 95 96 05/18/20 20:00 05/18/20 20:46 05/18/20 22:00 Temperature Pulse Rate 94 92 94 Respiratory Rate 20 Blood Pressure Pulse Oximetry 96 05/19/20 00:00 05/19/20 01:49 05/19/20 04:00 Temperature 99.2 F 100.7 F H Pulse Rate 95 92 109 H Respiratory Rate 18 18 Blood Pressure 107/65 107/65 Pulse Oximetry 91 99 05/19/20 06:00 05/19/20 06:40 05/19/20 07:57 Temperature 98.6 F 96.7 F L Pulse Rate 104 H 101 H Respiratory Rate 14 Blood Pressure 114/68 Pulse Oximetry 96 05/19/20 08:01 Temperature Pulse Rate 107 H Respiratory Rate Blood Pressure Pulse Oximetry Intake/Output Intake/Output: Intake & Output 05/16/20 05/17/20 05/18/20 05/19/20 23:59 23:59 23:59 23:59 Intake Total 1540 2642 300 Output Total 750 300 Balance 1540 1892 0 Meds/Results Medications: Active Medications Generic Name Dose Route Start Last Admin Trade Name Freq PRN Reason Stop Dose Admin Enoxaparin Sodium 40 mg 05/19/20 09:00 05/19/20 08:01 Lovenox SUB-Q 40 mg DAILY SEEMA Administration Piperacillin/Tazobactam/Dextrose 3.375 gm in 50 mls @ 100 mls/hr 05/17/20 23:00 05/19/20 08:01 Zosyn 3.375 Gm/D5w 50ml Pm IVPB Infused Q6HR SEEMA Infusion Acetaminophen 1,000 mg in 100 mls @ 400 mls/hr 05/19/20 05:18 Ofirmev 1,000 Mg Ivpb IVPB 05/20/20 05:19 Q6H PRN Pain or Fever Morphine Sulfate 4 mg 05/17/20 15:38 Morphine Sulfate Inj IV PUSH Q2H PRN Pain Rated 7-10 Sotalol HCl 80 mg 05/18/20 09:45 05/19/20 08:01 Betapace PO 80 mg Q12HR SEEMA Administration Radiology Results: ITS Impressions Upper Quadrant Ultrasound 05/17/20 14:00 IMPRESSION: 1. Gallbladder sludge without additional findings of cholecystitis. Hepatobiliary Scan Nuclear Medicine 05/18/20 15:50 IMPRESSION: 1. Consultation of findings including delayed hepatic uptake with no discernible hepatic excretion with no biliary ductal dilation on recent ultrasound most consistent with severe hepatocellular dysfunction. Chest X-Ray 05/18/20 21:13 IMPRESSION: Abnormal by basilar reticulation appearance most consistent with chronic interstitial lung disease but can't exclude acute infectious process. Labs Labs: Laboratory Results - last 24 hr 05/18/20 05/18/20 05/19/20 11:17 11:17 04:22 WBC 7.4 RBC 3.42 L Hgb 11.4 L Hct 32.9 L MCV 96.2 MCH 33.3 MCHC 34.7 RDW 13.4 Plt Count 128 L MPV 9.9 Immature Gran % (Auto) 0.3 Neut
--- NOTE | 2020-05-19 10:36 | PM.PNGS ---
Progress Note: A&P Assessment and Plan (1) Fever: Code(s): R50.9 - Fever, unspecified Status: Acute Assessment and Plan: temp to 38.2 at 4:00 a.m. this morning. Temperature curve is down trending. Etiology of fever is likely due to hepatic dysfunction. (2) Hepatic dysfunction: Code(s): K76.9 - Liver disease, unspecified Status: Acute Assessment and Plan: Hepatitis panel negative. HIDA scan however strongly suggestive of hepatocellular dysfunction. No evidence of gallbladder disease. LFTs are improving. Management per Gastroenterology. (3) Atrial fibrillation: Code(s): I48.91 - Unspecified atrial fibrillation Status: Acute Assessment and Plan: Okay to anticoagulate from my perspective. There are no plans for surgery. May want to check with Dr. Padilla to see if he plans to do a liver biopsy before starting anticoagulation. (4) Biliary sludge: Code(s): K83.8 - Other specified diseases of biliary tract Status: Acute Assessment and Plan: No evidence of cholecystitis or common bile duct obstruction. No plans for surgery. Will follow peripherally. Subjective Subjective Date/Time Seen: 05/19/20 10:36 Patient reports: no new complaints, feels better, pain is less ( No abdominal pain again today.) and fever Review of Systems Review of Systems: All systems reviewed & are unremarkable except as noted in HPI and below Constitutional: Constitutional: Reports fever(s) and Denies headache(s) Cardiovascular: Cardiovascular: Denies chest pain and Denies dyspnea Respiratory: Respiratory: Denies cough and Denies dyspnea Gastrointestinal: Gastrointestinal: Reports as per HPI Neurologic: Denies confusion and Denies headache(s) Exam Const: General: healthy appearing, comfortable, no acute distress, alert and awake; No confusion Nutritional Appearance: average body habitus Orientation/consciousness: patient oriented x3 and No confusion Other: GI: GI Palp: Yes Soft to palpation, Yes Tenderness to palpation present (GI), No Guarding due to palpation present (GI) and No Rebound tenderness present Auscultation: normal bowel sounds Neuro: General: patient oriented x3, no focal motor deficits and No confusion Extrem: General: no calf tenderness and no edema Psych: Affect: normal affect Insight: Good insight present (Psych) Judgement: Good judgement present (Psych) Objective Data Vital Signs Vital Signs: Vital Signs - 24 hr 05/18/20 12:00 05/18/20 14:00 05/18/20 16:00 Temperature 37.2 C Pulse Rate 103 H 103 H 97 Respiratory Rate 16 18 Blood Pressure 112/73 Pulse Oximetry 97 95 05/18/20 18:00 05/18/20 19:50 05/18/20 20:00 Temperature 36.7 C Pulse Rate 104 H 94 94 Respiratory Rate 20 20 Blood Pressure 94/57 L Pulse Oximetry 96 96 05/18/20 20:46 05/18/20 22:00 05/19/20 00:00 Temperature 37.3 C Pulse Rate 92 94 95 Respiratory Rate 18 Blood Pressure 107/65 Pulse Oximetry 91 05/19/20 01:49 05/19/20 04:00 05/19/20 06:00 Temperature 38.2 C H Pulse Rate 92 109 H 104 H Respiratory Rate 18 Blood Pressure 107/65 Pulse Oximetry 99 05/19/20 06:40 05/19/20 07:57 05/19/20 08:00 Temperature 37.0 C 35.9 C L Pulse Rate 101 H 100 Respiratory Rate 14 Blood Pressure 114/68 Pulse Oximetry 96 05/19/20 08:01 Temperature Pulse Rate 107 H Respiratory Rate Blood Pressure Pulse Oximetry Maximum temp was 30? 8.2 at 4:00 a.m. this morning. Temperature curve seems to be decreasing. Intake/Output Intake/Output: Intake & Output 05/16/20 05/17/20 05/18/20 05/19/20 23:59 23:59 23:59 23:59 Intake Total 1540 2642 780 Output Total 750 300 Balance 1540 1892 480 Meds/Results Medications: Active Medications Generic Name Dose Route Start Last Admin Trade Name Freq PRN Reason Stop Dose Admin Enoxaparin Sodium 40 mg 05/19/20 09:00 05/19/20 08:01 Lovenox SUB-Q 40
--- NOTE | 2020-05-19 11:46 | PM.PNCARD ---
Progress Note: A&P Assessment and Plan (1) Atrial fibrillation: Code(s): I48.91 - Unspecified atrial fibrillation Status: Acute Assessment and Plan: Acute atrial fibrillation, heart rate now controlled, started on sotalol. EKG 05/19/2020 on my personal review shows AFib rate 100, QTC 467 milliseconds which is acceptable. Reviewed atrial fibrillation, risk of cardioembolic events, treatment options of cetera with patient and . Will get 5th dose sotalol tmr a.m.; if QTc OK then can be discharged and FU as OPT. Will start Eliquis. (2) Hepatic dysfunction: Code(s): K76.9 - Liver disease, unspecified Status: Acute Assessment and Plan: Possible passed gallbladder stone. LFTs improving. (3) Mitral regurgitation: Code(s): I34.0 - Nonrheumatic mitral (valve) insufficiency Status: Acute Assessment and Plan: Smbl-ef-[id number] mitral regurgitation noted. Reviewed Valvular disease with patient, likely repeat an echo in a couple of years. (4) Aortic stenosis: Code(s): I35.0 - Nonrheumatic aortic (valve) stenosis Status: Acute Assessment and Plan: mild aortic stenosis by echo. Subjective Date/time seen: Admitted for fever and abdominal pain, elevated LFTs. Possible hepatitis.Follow-up for acute AFib RVR and mitral regurgitation. Started on sotalol 05/18/2020. 05/19/20 11:46 Date of service: 05/2020 Patient feels well and is eager to be discharged. Asked how much alcohol he can drink; understands he should not drink at all for 2 weeks after discharge. Eating fine, no further abdominal pain. Low-grade temp early this morning. Telemetry shows heart rate 80-105 beats per minute. Echo yesterday showed normal LV function, [id number] MR. Review of Systems Constitutional: Constitutional: Reports no additional constitutional complaints ENT: Denies nasal congestion Cardiovascular: Cardiovascular: Denies chest pain, Denies pedal edema, Denies leg edema, Denies lightheadedness and Denies palpitations Respiratory: Respiratory: Denies chest congestion and Denies dyspnea Gastrointestinal: Gastrointestinal: Denies abdominal pain and Denies hematochezia Genitourinary: Genitourinary: Denies dysuria Musculoskeletal: Musculoskeletal: Denies back pain Integumentary/Breasts: Skin/Breast: Denies rash Neurologic: Denies confusion Psychiatric: Psychiatric: Reports no additional psychiatric complaints Exam Const: General: comfortable and no acute distress Other: at his bedside HENMT: Mouth: Yes moist mucous membranes Eyes: EOM: EOMs intact bilaterally Neck: Neck: supple Resp: Effort & Inspection: normal respiratory effort Auscultation: clear to auscultation bilaterally Cardio: Rhythm: abnormal rhythm irregularly irregular Heart sounds: Murmur heart sound present ( 1/6 DANIELLE left sternal border) GI: Inspection: non-distended Other: soft and nontender Skin: General skin exam: no rashes or lesions noted Neuro: Speech: normal speech Motor exam (neuro): Normal motor muscle tone present throughout Extrem: General: no edema and no pedal edema Psych: Mental Status: mental status grossly normal Affect: normal affect Objective Data Vital Signs Vital Signs: Vital Signs - 24 hr 05/18/20 12:00 05/18/20 14:00 05/18/20 16:00 Temperature 98.9 F Pulse Rate 103 H 103 H 97 Respiratory Rate 16 18 Blood Pressure 112/73 Pulse Oximetry 97 95 05/18/20 18:00 05/18/20 19:50 05/18/20 20:00 Temperature 98.1 F Pulse Rate 104 H 94 94 Respiratory Rate 20 20 Blood Pressure 94/57 L Pulse Oximetry 96 96 08/07/20 20:46 05/18/20 22:00 05/19/20 00:00 Temperature 99.2 F Pulse Rate 92 94 95 Respiratory Rat
--- NOTE | 2020-05-19 12:04 | PM.IMPN ---
Progress Note: A&P Assessment and Plan (1) Abdominal pain: Qualifiers: Abdominal location: periumbilical Qualified Code(s): R10.33 - Periumbilical pain Code(s): R10.9 - Unspecified abdominal pain Status: Acute Assessment and Plan: Patient with abdominal pain and fever on admission. Patient asymptomatic at this time. Ultrasound showing gallbladder sludge but no evidence of cholecystitis. HIDA scan showing delayed hepatic uptake consistent with severe hepatocellular dysfunction. Probably acute hepatitis. Hepatitis panel is negative. Continue to monitor for now. Appreciate GI and general surgery input (2) Fever: Code(s): R50.9 - Fever, unspecified Status: Acute Assessment and Plan: patient with fever to 101.7. Etiology unclear but suspect related to hepatitis. White count essentially normal but did have a left shift. Urine is clear. CXR showing bibasilar lung reticulation possibly ILD. Blood cultures are NGTD. Still having low grade fevers. Will continue antibiotics for now. (3) Atrial fibrillation: Code(s): I48.91 - Unspecified atrial fibrillation Status: Acute Assessment and Plan: Patient developed atrial fibrillation. He was admitted to IMU was started on diltiazem drip. He was seen by cardiology and sotalol was started and the drip was stopped. Echo showing EF of 60-65% and moderate MR and severe biatrial dilation. He may be in and out of atrial fibrillation. Discussed with cardiology about long-term anticoagulation. No surgery planned so will start Eliquis. Long discussion about the risks/benefots of anti-coagulation. (4) Elevated LFTs: Code(s): R79.89 - Other specified abnormal findings of blood chemistry Status: Acute Assessment and Plan: Patient with elevated AST, ALT and total bilirubin. AST and ALT are trending downward. Bilirubin level climbed before trending down now. Mostly indirect. He may have passed a gallstone. Consider viral etiology. CMV titer ordered. Recommended to patient not to drink alcohol for at least 2 weeks and no Tylenol products. (5) Hypertension: Qualifiers: Hypertension type: unspecified Qualified Code(s): I10 - Essential (primary) hypertension Code(s): I10 - Essential (primary) hypertension Status: Acute Assessment and Plan: Blood pressure reviewed on 05/19/2020. Blood pressure well controlled. Blood pressure actually soft at times. Losartan on hold. He is currently off the diltiazem. Continue to monitor. (6) DVT prophylaxis: Code(s): Z29.9 - Encounter for prophylactic measures, unspecified Status: Acute Assessment and Plan: Lovenox; change to Eliquis Subjective Date/time seen: 05/19/20 12:04 Interval history: 84yo male with HTN here for fever and abd pain. Feels well today. Eating normally. No recurrent abd pain. No n/v. No CP. at bedside. He states that he drinks one beer for supper, one for dinner and an occasional mixed drink at night. Exam Narrative: Exam Narrative: Tm 100.7 98.4 110/62 99 14 98% ra Gen - NARD sitting up in chair Chest - CTA bilaterally, nml RR CV - irregularly irregular. S1-S2. Telemetry showing atrial fibrillation with mostly controlled rate. Abd - Soft, NT/ND, Positive BS Ext - No pedal edema Neuro - Alert and orientedx4. Nonfocal exam. Psych - Nml mood and affect Skin - Warm and dry Objective Data Vital Signs Vital Signs: Vital Signs - 24 hr 05/18/20 14:00 05/18/20 16:00 05/18/20 18:00 Temperature 98.9 F Pulse Rate 103 H 97 104 H Respiratory Rate 18 Blood Pressure 112/73 Pulse Oximetry 95 05/18/20 19:50 05/18/20 20:00 05/18/20 20:46 Temperature 98.1 F Pulse Rate 94 94 92 Respiratory Rate 20 20 Blood Pressure 94/57 L Pulse Oximetry 96 96 05/18/20 22:00 05/19/20 00:00 05/19/20 01:49 Temperature 99.2 F Pulse Rate 94 9
--- NOTE | 2020-05-19 22:43 | ECG_ITS ---
Measurements Intervals [place] Rate: 91 P: MS: 0 QRS: 8 QRSD: 83 T: 29 QT: 372 QTc: 460 Interpretive Statements ATRIAL FIBRILLATION ABNORMAL ECG Electronically Signed On 05-20-2020 7:54:58 CDT by Mohit Stark D.O.
[2020-05-20] VITALS (8 sets, daily range): BP systolic 119–120; BP diastolic 75–94; PULSE 83–105; RESP 16–20; TEMP 36.5–37.1; O2SAT 96–100
[2020-05-20 04:56] LABS: Hematocrit 34.2 % (42.0-52.0); Hemoglobin 11.7 g/dL (14.0-18.0); Mean Corpuscular HGB Conc 34.2 g/dl (32-36); Mean Corpuscular Hemoglobin 32.7 pg (26-34); Mean Corpuscular Volume 95.5 fl (80-100); Platelet Count Result 139 k/mm3 (150-375); Red Blood Count 3.58 M/mm3 (4.6-6.20); Red Cell Distribution Width 13.2 % (11.5-14.5); White Blood Count 5.7 K/mm3 (4.5-10.0)
[2020-05-20 05:08] LABS: Alanine Aminotransferase 101 U/L (4-50); Albumin Level 3.4 g/dL (3.5-5.1); Alkaline Phosphatase 79 U/L (38-126); Anion Gap 7 mmol/L (8-16); Aspartate Amino Transferase 46 U/L (17-59); Bilirubin,Total 1.8 mg/dL (0.2-1.3); Blood Urea Nitrogen 13 mg/dL (9-20); Calcium 7.9 mg/dL (8.4-10.2); Carbon Dioxide 26 mmol/L (22-30); Chloride 99 mmol/L (98-107); Estimated CRCL calculation 48 ml/min; Estimated Glomerular Filt Rate > 60; Glucose 98 mg/dL (75-110); Potassium 3.5 mmol/L (3.4-5.0); Sodium 132 mmol/L (137-145)
--- NOTE | 2020-05-20 08:12 | WPDGIPROGNO ---
Progress Note: A&P Additional Plan Patient feels much improved today. Denies abdominal pain since shortly after admission. He states bowel habits are normal. Tolerating diet without difficulty. Anxious to go home. Physical exam reveals patient to be alert. Vital signs stable. HEENT exam unremarkable. He is anicteric. Lungs are clear to auscultation and percussion. Heart is without murmur. Abdominal exam bowel sounds are present soft nontender with no organomegaly. Labs reveal total bilirubin 1.8, AST 46, ALT 101, alk-phos 79, lipase 33. impression 1. Resolved right upper quadrant abdominal pain. Possible passage of biliary sludge. 2. Elevated LFTs. Suggest he may have passed some sludge or small common duct stone. None visible on recent imaging of the biliary tree. HIDA scan unremarkable although possible hepatocellular disease described. Hepatitis serologies have been negative. 3. Alcohol use. Suggest patient decrease the use of his alcohol. If at all possible. 4. Atrial fibrillation. Followed by Cardiology. Hopefully home today. Plan is for patient to resume low-fat diet. Follow-up LFTs 1 week after discharge. He can follow up in my office in 1-2 weeks to ensure resolution of pain and And liver function test. Subjective Date/time seen: 05/20/20 08:12 Objective Data Vital Signs Vital Signs: Vital Signs - 24 hr 05/19/20 10:00 05/19/20 11:19 05/19/20 11:30 Temperature 98.4 F Pulse Rate 94 99 Respiratory Rate 14 Blood Pressure 110/62 Pulse Oximetry 98 05/19/20 12:00 05/19/20 14:00 05/19/20 15:48 Temperature 98.6 F Pulse Rate 97 89 88 Respiratory Rate 16 Blood Pressure 127/74 Pulse Oximetry 98 05/19/20 16:00 05/19/20 18:09 05/19/20 20:00 Temperature 96.9 F L Pulse Rate 102 H 92 95 Respiratory Rate 16 Blood Pressure 114/72 Pulse Oximetry 98 05/19/20 20:40 05/19/20 21:56 05/19/20 23:59 Temperature 98.6 F Pulse Rate 94 93 92 Respiratory Rate 16 Blood Pressure 115/67 Pulse Oximetry 96 05/20/20 00:00 05/20/20 02:00 05/20/20 04:00 Temperature 98.7 F Pulse Rate 89 99 85 Respiratory Rate 16 18 Blood Pressure 119/76 Pulse Oximetry 96 98 05/20/20 05:40 Temperature Pulse Rate 96 Respiratory Rate Blood Pressure Pulse Oximetry Intake/Output Intake/Output: Intake & Output 05/17/20 05/18/20 05/19/20 05/20/20 23:59 23:59 23:59 23:59 Intake Total 1540 2642 1130 50 Output Total 750 620 380 Balance 1540 1892 510 -330 Meds/Results Medications: Active Medications Generic Name Dose Route Start Last Admin Trade Name Freq PRN Reason Stop Dose Admin Enoxaparin Sodium 40 mg 05/19/20 09:00 05/19/20 08:01 Lovenox SUB-Q 40 mg DAILY SEEMA Administration Piperacillin/Tazobactam/Dextrose 3.375 gm in 50 mls @ 100 mls/hr 05/17/20 23:00 05/20/20 05:51 Zosyn 3.375 Gm/D5w 50ml Pm IVPB Infused Q6HR SEEMA Infusion Morphine Sulfate 4 mg 05/17/20 15:38 Morphine Sulfate Inj IV PUSH Q2H PRN Pain Rated 7-10 Pantoprazole Sodium 40 mg 05/20/20 09:00 Protonix PO 06/19/20 09:01 DAILY SEEMA Sotalol HCl 80 mg 05/18/20 09:45 05/19/20 20:40 Betapace PO 80 mg Q12HR SEEMA Administration Radiology Results: ITS Impressions Upper Quadrant Ultrasound 05/17/20 14:00 IMPRESSION: 1. Gallbladder sludge without additional findings of cholecystitis. Hepatobiliary Scan Nuclear Medicine 05/18/20 15:50 IMPRESSION: 1. Consultation of findings including delayed hepatic uptake with no discernible hepatic excretion with no biliary ductal dilation on recent ultrasound most consistent with severe hepatocellular dysfunction. Chest X-Ray 05/18/20 21:13 IMPRESSION: Abnormal by basilar reticulation appearance most consistent with chronic interstitial lung disease but can't exclude acute infectious process. Labs Labs: Laboratory Results - last 24 hr 05/20/20
[2020-05-20] MEDS: ENOXAPARIN 40 MG/0.4 ML SYRINGE SUB-Q (08:32)
[2020-05-20] MEDS: PANTOPRAZOLE 40 MG TABLET PO (08:33)
[2020-05-20] MEDS: SOTALOL HCL 80 MG TABLET PO (08:33)
--- NOTE | 2020-05-20 10:29 | ECG_ITS ---
Measurements Intervals [place] Rate: 90 P: SD: 0 QRS: -1 QRSD: 86 T: 3 QT: 388 QTc: 477 Interpretive Statements ATRIAL FIBRILLATION BORDERLINE T WAVE ABNORMALITY- INFERIOR LEADS ABNORMAL ECG Electronically Signed On 05-20-2020 15:00:18 CDT by Mohit Stark D.O.
--- NOTE | 2020-05-20 10:37 | PM.PNCARD ---
Progress Note: A&P Assessment and Plan (1) Atrial fibrillation: Code(s): I48.91 - Unspecified atrial fibrillation Status: Acute Assessment and Plan: Acute atrial fibrillation, heart rate now controlled, started on sotalol. EKG 05/20/2020 on my personal review shows AFib rate atrial fibrillation rate 90, QTC 477 milliseconds which is acceptable. Can be discharged and FU as OPT. Home on Eliquis and sotalol b.i.d.. Reviewed medications with patient and . I also talked to the patient's daughter yesterday by phone. My office will call the patient to schedule a follow-up appointment; hopefully he will be back in sinus rhythm by that time. (2) Hepatic dysfunction: Code(s): K76.9 - Liver disease, unspecified Status: Acute Assessment and Plan: Possible passed gallbladder stone. LFTs improving (3) Mitral regurgitation: Code(s): I34.0 - Nonrheumatic mitral (valve) insufficiency Status: Acute Assessment and Plan: Dglo-cb-[id number] mitral regurgitation noted. Reviewed Valvular disease with patient, likely repeat an echo in a couple of years. (4) Aortic stenosis: Code(s): I35.0 - Nonrheumatic aortic (valve) stenosis Status: Acute Assessment and Plan: mild aortic stenosis by echo Subjective Date/time seen: 05/20/20 10:37 Date/time seen: Admitted for fever and abdominal pain, elevated LFTs. Possible hepatitis.Follow-up for acute AFib RVR and mitral regurgitation. Started on sotalol 05/18/2020. Date of Visit: 05/2020 Patient feels well and is eager to be discharged. Asked how much alcohol he can drink; understands he should not drink at all for 2 weeks after discharge. Eating fine, no further abdominal pain. Low-grade temp early this morning. Telemetry shows heart rate 80-105 beats per minute. Echo yesterday showed normal LV function, [id number]-wp-wiqfstwy MR. date of service: 05/20/2020 patient is eager for discharge, up and about in his room and feels well. No abdominal pain or fevers, no dizziness, palpitations or chest pain. Telemetry shows heart rate 80-100 beats per minute, Infrequent PVC. Review of Systems Constitutional: Constitutional: Reports no additional constitutional complaints ENT: Denies epistaxis Cardiovascular: Cardiovascular: Denies chest pain, Denies pedal edema, Denies lightheadedness and Denies palpitations Respiratory: Respiratory: Denies dyspnea and Denies dyspnea on exertion Gastrointestinal: Gastrointestinal: Denies abdominal pain Genitourinary: Genitourinary: Denies hematuria Musculoskeletal: Musculoskeletal: Denies back pain Integumentary/Breasts: Skin/Breast: Denies rash Neurologic: Denies confusion Psychiatric: Psychiatric: Reports no additional psychiatric complaints Exam Const: General: comfortable and no acute distress HENMT: General nose exam: no epistaxis Eyes: EOM: EOMs intact bilaterally Neck: Neck: supple Resp: Effort & Inspection: normal respiratory effort Auscultation: clear to auscultation bilaterally Cardio: Rhythm: abnormal rhythm irregularly irregular GI: Inspection: non-distended Other: Soft and nontender Skin: General skin exam: no rashes or lesions noted Neuro: Speech: normal speech Motor exam (neuro): Normal motor muscle tone present throughout Extrem: General: no edema Psych: Mental Status: mental status grossly normal Affect: normal affect Objective Data Vital Signs Vital Signs: Vital Signs - 24 hr 05/19/20 11:19 05/19/20 11:30 05/19/20 12:00 Temperature 98.4 F Pulse Rate 99 97 Respiratory Rate 14 Blood Pressure 110/62 Pulse Oximetry 98 05/19/20 14:00 05/19/20 15:48 05/19/20 16:00 Temperature 98.6 F Pulse Rate 89 88 102 H Respiratory Rate 16 Blood Pressure 127/74 Pulse Oximetry 98 05/19/20
--- NOTE | 2020-05-20 12:58 | PM.DS ---
DS: Admitting Diagnosis Admitting Diagnosis Admitting Diagnosis: Periumbilical pain DS: Discharge Diagnosis Discharge Diagnosis (1) Abdominal pain: Qualifiers: Abdominal location: periumbilical Qualified Code(s): R10.33 - Periumbilical pain Code(s): R10.9 - Unspecified abdominal pain Status: Acute Assessment and Plan: Patient with abdominal pain and fever on admission. Ultrasound showing gallbladder sludge but no evidence of cholecystitis. He was started on Zosyn. HIDA scan showing delayed hepatic uptake consistent with severe hepatocellular dysfunction. Probably acute hepatitis. Hepatitis panel is negative. GI and general surgery consulted. LFTs elevated but trended down. Symptoms resolved. (2) Fever: Code(s): R50.9 - Fever, unspecified Status: Acute Assessment and Plan: Patient with fever to 101.7. Etiology unclear but suspect related to acute viral hepatitis. White count essentially normal but did have a left shift. Urine is clear. CXR showing bibasilar lung reticulation possibly ILD but not felt to have PNA. Blood cultures are NGTD. Fevers resolved. Plan to continue abx to complete 7 days of treatment. (3) Atrial fibrillation: Code(s): I48.91 - Unspecified atrial fibrillation Status: Acute Assessment and Plan: Patient developed atrial fibrillation. He was admitted to IMU was started on diltiazem drip. He was seen by cardiology and sotalol was started and the drip was stopped. Echo showing EF of 60-65% and moderate MR and severe biatrial dilation. He may be in and out of atrial fibrillation. Discussed with cardiology about long-term anticoagulation and Eliquis started. Long discussion about the risks/benefots of anti-coagulation. ASA stopped since patient denies any hx of PAD, CAD, TIA or CVA. (4) Elevated LFTs: Code(s): R79.89 - Other specified abnormal findings of blood chemistry Status: Acute Assessment and Plan: Patient with elevated AST, ALT and total bilirubin on admission. Values trended downward on repeat. Bilirubin mostly indirect. He may have passed a gallstone or possibly related to sludge as seen by imaging. Consider ascending cholangitis or viral hepatitis to explain the fevers. CMV titer ordered. Will follow values as outpatient (5) Acute hepatitis: Code(s): B17.9 - Acute viral hepatitis, unspecified Status: Acute Assessment and Plan: As above. (6) Hypertension: Qualifiers: Hypertension type: unspecified Qualified Code(s): I10 - Essential (primary) hypertension Code(s): I10 - Essential (primary) hypertension Status: Acute Assessment and Plan: Blood pressure monitored closely. Blood pressure well controlled. Blood pressure actually soft at times. Losartan was held. DS: Summary Hospital Course Reason for hospitalization: 84yo male here for abd pain and fever. Please see H&P for details. Hospital Course: As above Time Spent with Patient Time attestation: Total time spent providing and/or coordinating discharge services:35 minutes Time spent: Greater than 30 minutes Exam Narrative: Exam Narrative: AF 119/94 83 Gen - NARD Chest - CTA bilaterally, nml RR CV - irregularly irregular. S1-S2. Telemetry showing atrial fibrillation with mostly controlled rate. Abd - Soft, NT/ND, Positive BS Ext - No pedal edema Psych - Nml mood and affect Skin - Warm and dry DS: Data Data Completed and Pending Labs on day of discharge: Labs from last 24 hours 05/20/20 05/20/20 04:39 04:39 WBC 5.7 RBC 3.58 L Hgb 11.7 L Hct 34.2 L MCV 95.5 MCH 32.7 MCHC 34.2 RDW 13.2 Plt Count 139 L MPV 10.0 Sodium 132 L Potassium 3.5 Chloride 99 Carbon Dioxide 26 Anion Gap 7 L BUN 13 Creatinine 1.00 Estim Creat Clear Calc 48 Estimated GFR > 60 Glucose 98 Calcium 7.9 L Total Bilirubin
[2020-05-21 14:09] LABS: Mitochondrial (M2) Ab (IgG) <=20.0 U (<=20.0)
--- NOTE | 2020-05-25 11:19 | PC.NURSE ---
KADEN- negative AMA- <=20.
[2020-05-25 12:08] LABS: CMV IgM Antibody <30.00 AU/mL (<30.00)
--- NOTE | 2020-05-29 15:19 | PC.NURSE ---
CMV IgM WNL. Dr. Soares aware.
== END 2020-05-20 14:57 | disposition home or self-care (01) | DRG 442 ==
LOC: ANHED 15:44 → ANH3MEDSUR 16:49 → ANHIMU 05-18 04:11
PROVIDERS: Internal Medicine; Internal Medicine Gastroenterology; Surgery; Admitting Provider Internal Medicine; Emergency Provider Emergency Medicine; PCP Family Medicine; Visit Provider Internal Medicine
DX: B17.9 Acute viral hepatitis, unspecified (principal); I47.1 Supraventricular tachycardia; I10 Essential (primary) hypertension; K83.8 Other specified diseases of biliary tract; I48.91 Unspecified atrial fibrillation; K76.89 Other specified diseases of liver
CPT/HCPCS: 36415; 71046; 76705; 78226; 80053; 80074; 80076; 81001; 82728; 83520; 83690; 85025; 85027; 86038; 86645; 87040; 93005; 93306; 96365; 96367; 99285; A9270; A9537; J0131; J1650; J2543; J7030

== ENCOUNTER 2020-08-17 09:26 | Outpatient (CLI) | payer MEDICARE, SELFPAY ==
--- NOTE | ~2020-08-17 | XR_ITS ---
EXAMINATION: XR chest 2V DATE: 08/17/2020 09:55 INDICATION: Shortness of breath and chest tightness TECHNIQUE: PA and lateral views of the chest are obtained. COMPARISON: 05/18/2020 FINDINGS: There are bibasilar airspace opacities with slight worsening on the right. There is no pleu ral effusion or pneumothorax. The cardiomediastinal silhouette is normal. A stable lower thoracic com pression deformity is noted. There is moderate thoracic spondylosis. IMPRESSION: 1. Bibasilar airspace opacities with worsening in the right lung base, possibly chronic changes with acute superimposed pneumonia or atelectasis. Reviewed, dictated and finalized at location A. LOPMENT REP
== END 2020-08-17 09:27 | disposition home or self-care (01) ==
PROVIDERS: PCP Family Medicine; Visit Provider Specialist
DX: R06.02 Shortness of breath (principal); R91.8 Other nonspecific abnormal finding of lung field
CPT/HCPCS: 71046

== ENCOUNTER → 2020-08-30 10:36 | Outpatient (CLI) | payer MEDICARE, SELFPAY ==
--- NOTE | ~2020-08-30 | CT_ITS ---
EXAMINATION: CT chest wo con EXAM DATE: 08/30/2020 10:51 INDICATION: Shortness of breath TECHNIQUE: Spiral CT of the chest without contrast. Axial, coronal and sagittal images were reviewe d. Coronal maximum intensity pixel images of chest reviewed. The dose-length product (DLP) for this examination was 344.90 mGy-cm. The exposure was tailored according to patient size (auto mA exposur e control), and iterative reconstruction (ASIR) was used as additional dose reduction technique. The re is no prior study for comparison. FINDINGS: There is moderate amount of right-sided, mild amount of left-sided centrilobular opacities with some interlobular septal thickening, punctate calcifications indicating that this is chronic in terstitial lung disease. No definite superimposed acute airspace disease. There is small right pleura l effusion. There are no pleural or pericardial effusions. Tracheobronchial tree is patent. Ther e is no mediastinal, hilar or axillary lymphadenopathy. There is no pneumothorax. Heart normal in size. There is moderate coronary arterial calcification, arterial sclerosis. There is small to mod erate sliding gastroesophageal hiatal hernia. There is thoracic spondylosis without osteoblastic or osteolytic lesions identified. IMPRESSION: 1. Moderate right, mild left chronic interstitial lung disease. 2. Small right pleural effusion. Reviewed, dictated and finalized at location A. MUTUEL CLERK
== END ==
PROVIDERS: PCP Student in an Organized Health Care Education/Training Program; Visit Provider Student in an Organized Health Care Education/Training Program
DX: R06.02 Shortness of breath (principal); J90 Pleural effusion, not elsewhere classified; J84.9 Interstitial pulmonary disease, unspecified
CPT/HCPCS: 71250

== ENCOUNTER 2020-12-11 09:17 | Outpatient (CLI) | payer MEDICARE, SELFPAY ==
--- NOTE | ~2020-12-11 | MR_ITS ---
EXAMINATION: MR lumbar spine wo [facility] EXAM DATE: 12/11/2020 11:08 INDICATION: Compression fracture. TECHNIQUE: Multi-sequential, multiplanar MR images of the lumbar spine were obtained without contrast . Sagittal T1, T2, T2 fat saturation images. Axial T2 weighted images. There is no prior study for comparison. FINDINGS: There is moderate burst fracture at the L3 vertebral body, involvement of the posterior cor hima, but no retropulsion. This is likely acute or subacute given presence of vertebral body edema. Th ere is 4 mm retrolisthesis L2 on L3, 3 mm anterolisthesis L3 on L4, 2 mm retrolisthesis T12 on L1 and L1 on L2. The conus medullaris terminates at the T12-L1 level and has normal signal intensity and mo rphology. There is mild to moderate chronic anterior wedging of T12. Moderate to severe loss of the disc height L4-S1, moderate at the other lumbar levels. Paraspinal soft tissue is unremarkable. Level by level evaluation: T12-L1: There is a mild diffuse disc bulge. Facet arthropathy: Mild. Neural foraminal stenosis: Mild right. Central canal stenosis: No stenosis. L1-L2: There is a mild diffuse disc bulge. Facet arthropathy: Mild. Neural foraminal stenosis: Mild to moderate bilateral. Central canal stenosis: No stenosis. L2-L3: There is a moderate diffuse disc bulge. Facet arthropathy: Mild to moderate. Neural foraminal stenosis: Moderate to severe right, mild to moderate left. Central canal stenosis: Mild. L3-L4: There is a moderate diffuse disc bulge. Facet arthropathy: Moderate to severe. Neural foraminal stenosis: Mild to moderate bilateral. Central canal stenosis: Mild. L4-L5: There is a moderate diffuse disc bulge. Facet arthropathy: Moderate bilateral. Neural foraminal stenosis: Moderate bilateral. Central canal stenosis: Mild. L5-S1: There is a mild to moderate diffuse disc bulge. Facet arthropathy: Mild to moderate. Neural foraminal stenosis: Moderate left, mild to moderate right. Central canal stenosis: No stenosis. IMPRESSION: 1. Acute or subacute L3 burst fracture, moderate loss of height but no retropulsion. 2. Advanced lumbar spondylosis as detailed above. Reviewed, dictated and finalized at location A. MAKEUP SYSTEM OPERATOR IMPRESSION: 1. Acute or subacute L3 burst fracture, moderate loss of height but no retropu lsion. 2. Advanced lumbar spondylosis as detailed above.
== END 2020-12-11 09:18 | disposition home or self-care (01) ==
PROVIDERS: PCP Student in an Organized Health Care Education/Training Program; Visit Provider Student in an Organized Health Care Education/Training Program
DX: S32.031A Stable burst fracture of third lumbar vertebra, initial encounter for closed fracture (principal); M47.816 Spondylosis without myelopathy or radiculopathy, lumbar region
CPT/HCPCS: 72148

== ENCOUNTER 2021-07-07 17:36 | Emergency (ER) | payer MEDICARE, SELFPAY ==
[2021-07-07 18:01] VITALS: BP 160/91; PULSE 88; RESP 16; TEMP 36.4; O2SAT 96
[2021-07-07 18:19] LABS: Basophils Absolute Auto 0.1 K/mm3 (0.0-0.1); Basophils Percent Auto 0.5 % (0.2-1.2); Eosinophils Absolute Auto 0.1 K/mm3 (0-0.3); Eosinophils Percent Auto 1.5 % (0-4.4); Hematocrit 37.9 % (42.0-52.0); Hemoglobin 13.5 g/dL (14.0-18.0); Immature Granulocyte Absolute 0.05 K/mm3 (0.00-0.031); Immature Granulocyte Percent A 0.5 % (0-0.5); Lymphocytes Percent Auto 9.7 % (18.3-44.2); Mean Corpuscular HGB Conc 35.6 g/dl (32-36); Mean Corpuscular Hemoglobin 32.3 pg (26-34); Mean Corpuscular Volume 90.7 fl (80-100); Mean Platelet Volume 8.5 fl (7.4-10.4); Monocytes Absolute Auto 0.7 K/mm3 (0.1-0.6); Neutrophils Absolute Auto 7.5 K/mm3 (1.3-6.7); Neutrophils Percent Auto 80.8 % (45.5-73.1); Platelet Count Result 323 k/mm3 (150-375); Red Blood Count 4.18 M/mm3 (4.6-6.20); White Blood Count 9.3 K/mm3 (4.5-10.0)
[2021-07-07 18:30] LABS: Alanine Aminotransferase 12 U/L (4-50); Albumin Level 4.1 g/dL (3.5-5.1); Alkaline Phosphatase 99 U/L (38-126); Anion Gap 11 mmol/L (8-16); Aspartate Amino Transferase 25 U/L (17-59); Bilirubin,Total 0.7 mg/dL (0.2-1.3); Blood Urea Nitrogen 13 mg/dL (9-20); Calcium 8.8 mg/dL (8.4-10.2); Carbon Dioxide 28 mmol/L (22-30); Chloride 90 mmol/L (98-107); Estimated CRCL calculation 68 ml/min; Estimated Glomerular Filt Rate > 60; Glucose 160 mg/dL (65-110); Lipase 41 U/L (23-300); Potassium 4.4 mmol/L (3.4-5.0); Sodium 129 mmol/L (137-145)
[2021-07-07 20:47] VITALS: BP 156/84; PULSE 82; RESP 18; TEMP 36.3; O2SAT 97
[2021-07-07 23:49] VITALS: BP 168/95; PULSE 79; RESP 16; O2SAT 94
[2021-07-08 00:05] VITALS: BP 147/85; PULSE 80
[2021-07-08 00:06] VITALS: BP 159/82; PULSE 83
[2021-07-08 00:08] VITALS: BP 167/91; PULSE 92
[2021-07-08] MEDS: ONDANSETRON HCL ODT 4 MG TABLET PO (01:04)
[2021-07-08 01:05] VITALS: BP 143/86; PULSE 81; RESP 16; O2SAT 94
--- NOTE | 2021-07-08 01:05 | PC.NURSE ---
Pt aware of need for urine sample. States he will attempt to provide one. Urinal placed at bedside.
--- NOTE | 2021-07-08 01:14 | ED.NAVMDI ---
HPI - Nausea/Vomiting/Diarrhea General Chief complaint: Nausea/Vomiting/Diarrhea Stated complaint: weakness Time Seen by Provider: 07/07/21 23:39 History of Present Illness HPI Narrative: Patient is an 85-year-old male with history of dementia that presents ER with an episode of vomiting. Patient was at the home and had had a bowel movement. He then was very weak getting up off the toilet and had to crawl up some stairs. He then started having episodes of emesis. While in the waiting room he began feeling much better. He has had no additional emesis since being here. He has been able to eat some toast. Denies any abdominal pain. reports he has been doing well until the event today. Related Data Home Medications Medication Instructions Recorded Confirmed losartan 100 mg PO DAILY 05/17/20 05/17/20 omeprazole 20 mg PO DAILY 05/17/20 05/17/20 Allergies Allergy/AdvReac Type Severity Reaction Status Date / Time No Known Allergies Allergy Mild Verified 07/07/21 23:54 Review of Systems Review of Systems: All systems reviewed & are unremarkable except as noted in HPI and below ROS unobtainable: Yes unobtainable due to mental status Constitutional: Constitutional: Reports weakness Gastrointestinal: Gastrointestinal: Reports nausea and Reports vomiting PMFSH Past Medical History Medical History (Updated 07/08/21 @ 01:59 by Flash Brown MD) Aortic stenosis GERD (gastroesophageal reflux disease) Hypertension Mitral regurgitation Surgical History Surgical History (Updated 05/18/20 @ 04:25 by Meron Moore DO) H/O excision of ganglion cyst History of excision of pilonidal cyst Status post cataract extraction of both eyes with insertion of intraocular lens Family History Family History Father Coronary artery disease He reports that he is not close to his family And is uncertain when any of them had as medical problems. His full sibling is but he does not know what she from. Other No significant family history Social History Social History Social History: The patient lives at home with his , Riddhi, who he designates as his medical decision maker. Primary care physician: Dr. Mo Marlow Code status: full code Smoking status: Former smoker Alcohol intake: current Alcohol use details: Occasional alcohol use a few times per week. Substance use: never Additional living arrangements comments: the patient lives with his 3rd of 11 years. He has 2 children a son and a daughter. 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 Gender identity (if verbalized by the patient): Male Spiritual care concerns: No Exam Narrative: GENERAL: Well-appearing, well-nourished, and in no acute distress. HEAD: Normocephalic, atraumatic. EYES: PERRL and EOMI. CHEST: Clear to auscultation. No respiratory distress. HEART: Regular rate and rhythm. Normal peripheral pulses. ABDOMEN: Soft, nontender, nondistended, normal active bowel sounds. EXTREMITIES: Normal range of motion. No edema. SKIN: Warm, dry, no rash. NEURO: Alert and oriented x2. PSYCH: Normal mood and affect. Course Course Emergency Course: Patient p.o. challenged without issue. Orthostatics negative. Ambulates in the ER. feels comfortable taking him home. Discharge home. Vital Signs Vital signs: Vital Signs Temperature 97.5 F L 07/07/21 18:01 Pulse Rate 88 07/07/21 18:01 Respiratory Rate 16 07/07/21 18:01 Blood Pressure 160/91 H 07/07/21 18:01 Pulse Oximetry 96 07/07/21 18:01 Temperature 97.4 F L 07/07/21 20:47 Pulse Rate 81 07/08/21 01:05 Respiratory Rate 16 07/08/21 01:05 Blood Pressure 143/86 H 07/08/21 01:05 Pulse Oximetry 94 07/08/21 01:05 MDM - Naus
--- NOTE | 2021-07-08 01:34 | PC.NURSE ---
Pt ambulated by [facility] Kailey. Per Kailey pt ambulated with 1 assist, and was at times unsteady on feet. Pt reported dizziness with ambulation. Per at bedside, pts gait is not as steady as it is at home. Pt does not use ambulatory aids. EDP notified.
[2021-07-08 01:49] LABS: Add Urine Microscopic? YES; Appearance Urine Clear (Clear); Bilirubin Urine Negative (Negative); Blood Urine Negative (Negative); Color Urine Yellow (Yellow); Glucose Urine UA Negative (Negative); Ketones Urine 2+ mg/dL (Negative); Leukocyte Esterase Ur Negative LEU/UL (Negative); Mucus Urine Rare /lpf; Nitrate Urine Negative (Negative); Protein Urine 1+ mg/dL (Negative); Specific Grav Ur 1.017 (1.001-1.035); Urobilinogen Urine Negative mg/dL (<2.0); WBC Urine 0-3 /hpf
[2021-07-08 03:00] VITALS: BP 149/79; PULSE 82; RESP 18; O2SAT 94
== END 2021-07-08 03:05 | disposition home or self-care (01) ==
PROVIDERS: Emergency Medicine; Emergency Provider Emergency Medicine; PCP Student in an Organized Health Care Education/Training Program
DX: R11.2 Nausea with vomiting, unspecified (principal); I10 Essential (primary) hypertension; Z87.19 Personal history of other diseases of the digestive system; Z87.891 Personal history of nicotine dependence
CPT/HCPCS: 36415; 80053; 81001; 83690; 85025; 99283; A9270

== ENCOUNTER 2024-05-09 12:08 | Outpatient (RCR) | payer MEDICARE, SELFPAY ==
--- NOTE | 2024-05-09 13:29 | OTOPEVAL1 ---
Assessment and note entered by THELMA Jasso/Efraín, CHT Evaluation Information Assessment Status Evaluation Diagnosis Right knee OA, bilat hand pain Subjective Information Patient referred for mobility device/power w/c evaluation. He comes with dx of knee OA and hand pain/OA. Please refer to 12 page seating/mobility evaluation form for details. Reported Pain Level Pain Score 10: Self Report Assessment OT Clinical Summary This patient is unable to safely and independently ambulate household distances due to their current impairments of increased weakness, pain, fatigue, limited functional endurance, shortness of breath with activity, and decreased balance. He is at risk for falls due to decreased balance , knee and backpain, and limited standing tolerance, as well as a history of falls contributing to limited ability to walk with a walker or cane. This patient demonstrates significant functional mobility limitations that impair his ability to safely participate in mobility-related activities of daily living. These limitations cannot be sufficiently resolved by the use of an appropriate fitted cane, walker, or optimally configured manual w/c due to patient's pain, weakness, and limited functional endurance. The use of a power wheelchair will provide this patient a safe means of functional mobility necessary for completion of MRALS. The use of a power wheelchair will significantly improve the patient's ability to participate in MRADLS. This will facilitate optimal safety, independence, and participation. He has demonstrated sufficient physical and mental capabilities needed to safely operate a power wheelchair throughout his home. Plan of Care OT Services Indicated No These treatments will address the objective and functional deficits as defined above. The patient will be advanced safely and appropriately in order for the patient to progress towards his/her prior level of function. Additional exercises will be introduced and as well as a comprehensive home exercise program upon discharge, if needed, ?to ensure carryover of functional gains achieved in the clinic. This treatment plan has been reviewed and agreement upon by the patient.
== END 2024-05-10 09:38 | disposition home or self-care (01) ==
LOC: ANHOT 12:08
PROVIDERS: PCP Student in an Organized Health Care Education/Training Program; Visit Provider Student in an Organized Health Care Education/Training Program
DX: M17.11 Unilateral primary osteoarthritis, right knee (principal); M79.641 Pain in right hand; M79.642 Pain in left hand
CPT/HCPCS: 97167

== ENCOUNTER 2025-08-02 07:39 | Outpatient (CLI) | payer MEDICARE, SELFPAY ==
--- NOTE | ~2025-08-02 | US_ITS ---
ULTRASOUND ABDOMEN LIMITED (RIGHT UPPER QUADRANT) Clinical History: Elevated liver function tests Comparison: Right upper quadrant ultrasound 05/17/2020 HIDA scan 05/18/2020 Technique: Right upper quadrant sonography Findings: Liver: Normal size. Echogenic. No intrahepatic biliary ductal dilatation. Bidirectional flow within main portal vein. Common Duct: Normal caliber. 4 mm. Gallbladder: Echogenic debris. Wall thickening. No pericholecystic fluid. Negative sonographic Bergman's sign per technologist report. Pancreas: Obscured by bowel gas. Right kidney: Unremarkable. Retrohepatic IVC: Unremarkable. IMPRESSION: 1. Hepatic steatosis and/or hepatocellular disease. 2. Suspect chronic cholecystitis. Reviewed, dictated and finalized at location R.
== END 2025-08-02 07:40 | disposition home or self-care (01) ==
LOC: MICIMG 07:39
PROVIDERS: PCP Student in an Organized Health Care Education/Training Program; Visit Provider Registered Nurse
DX: R79.89 Other specified abnormal findings of blood chemistry (principal); K76.0 Fatty (change of) liver, not elsewhere classified
CPT/HCPCS: 76705